=== PATIENT | female | born 1950 | race Caucasian/White ===

== ENCOUNTER 2023-01-19 07:47 | Outpatient (CLI) | payer BC, MEDICARE | END 2023-01-19 07:48 | disposition home or self-care (01) | LOC: CSHRAD 07:47 | PROVIDERS: ATTEND Internal Medicine Cardiovascular Disease | DX: R06.02 Shortness of breath (principal) | CPT/HCPCS: 71046 ==

== ENCOUNTER 2024-05-09 12:37 | Outpatient (CLI) | payer BC | END 2024-05-09 12:38 | disposition home or self-care (01) | LOC: CSHMAMMO 12:37 | PROVIDERS: ATTEND Family Medicine | DX: Z12.31 Encounter for screening mammogram for malignant neoplasm of breast (principal) | CPT/HCPCS: 77063; 77067 ==

== ENCOUNTER 2024-06-21 10:19 | Outpatient (CLI) | payer BC | END 2024-06-21 10:20 | disposition home or self-care (01) | LOC: CSHMAMMO 10:19 | PROVIDERS: ATTEND Family Medicine | DX: M85.89 Other specified disorders of bone density and structure, multiple sites (principal); M81.0 Age-related osteoporosis without current pathological fracture | CPT/HCPCS: 77080 ==

== ENCOUNTER 2025-05-11 13:27 | Outpatient (CLI) | payer MEDICARE, OTHER | END 2025-05-11 13:28 | disposition home or self-care (01) | LOC: CSHMAMMO 13:27 | PROVIDERS: ATTEND Internal Medicine | DX: Z12.31 Encounter for screening mammogram for malignant neoplasm of breast (principal); Z98.82 Breast implant status; Z98.890 Other specified postprocedural states | CPT/HCPCS: 77063; 77067 ==